=== PATIENT | male | born 1980 | race Two or more races ===

== ENCOUNTER 2022-03-08 00:59 | Emergency (ER) | payer SELFPAY ==
[~2022-03-08] VITALS: Ht 175.3 cm; Wt 62.1 kg
--- NOTE | 2022-03-08 01:11 | NUR ---
PATIENT REFUSING ALL VITALS. EXPLAINED TO PATIENT AND DOCTOR THAT HE DOES NOT HAVE THE RIGHT TO REFUSE ANYTHING AT THIS TIME, PATIENT CONTINUALLY REFUSING ANYTHING AT THIS TIME. MD AWARE. EXPLAINED TO PATIENT COUNTLESS TIMES THAT THIS IS NOT CHARGING HIS INSURANCE AND THIS IS NOT A COST THING FOR HIM. PATIENT CONTINUALLY REFUSING.
--- NOTE | 2022-03-08 01:12 | NUR ---
DR. SHARMA SPEAKING TO PATIENT. PATIENT CONTIUING TO REFUSE ALL CARE, ASSESSMENTS OR ANYTHING FURTHER.
[2022-03-08] MEDS ORDERED: AUG875 PO (01:20)
--- NOTE | 2022-03-08 01:29 | NUR ---
Patient given written and verbal discharge instructions and verbalizes understanding. ER MD discussed with patient the results and treatment provided. Patient in stable condition. ID arm band removed. IV catheter removed intact and dressing applied, no active bleeding. Rx of AUGMENTIN given. Patient educated on pain management and to follow up with PMD. Pain Scale . Opportunity for questions provided and answered. Medication side effect fact sheet provided. ALL INFORMATION AND PRESCRIPTION GIVEN TO OFFICER DARA WHO BROUGHT PATIENT IN.
== END 2022-03-08 01:14 ==
LOC: SED 00:59
DX: Z02.89 Encounter for other administrative examinations (principal); S41.151A Open bite of right upper arm, initial encounter; Z79.899 Other long term (current) drug therapy; W50.3XXA Accidental bite by another person, initial encounter; X58.XXXA Exposure to other specified factors, initial encounter; Y93.89 Activity, other specified; Y92.89 Other specified places as the place of occurrence of the external cause; Y99.8 Other external cause status
CPT/HCPCS: 99283